=== PATIENT | female | born 1945 | race Caucasian/White ===

== ENCOUNTER → 2019-03-25 | Outpatient (CLI) | payer OTHER ==
[~2019-03-25] MED LIST: Antivert12.5 MG; BISO5; CYCL10; DICL25ER; ESTRTP VAG; METF500 PO
== END ==
LOC: LAB SHORT 08:45 → LAB EV 08:45
DX: R30.0 Dysuria (principal)
CPT/HCPCS: 87077; 87086; 87186

== ENCOUNTER 2024-04-10 10:17 | Inpatient (IN) | payer OTHER, SELFPAY ==
[~2024-04-10] VITALS: Ht 165.1 cm; Wt 82.3 kg
[~2024-04-10 10:17] MED LIST changes: +METPRE4DP PO; +Percocet 5-3251 EACH PO
[2024-04-10 10:59] LABS: BASOPHILS ABSOLUTE AUTO 0.08 K/mm3 (0.00-0.23); BASOPHILS PERCENT AUTO 0 % (0-2); EOSINOPHILS ABSOLUTE AUTO 0.02 K/mm3 (0.00-0.68); EOSINOPHILS PERCENT AUTO 0 % (0-6); Hematocrit 27.1 % (33.0-51.0); Hemoglobin 8.4 g/dL (11.5-16.0); IMMATURE GRAN ABSOLUTE AUTO 1.14 K/mm3 (0.00-0.10); IMMATURE GRAN PERCENT AUTO 3 % (0-1); LYMPHOCYTES ABSOLUTE AUTO 0.82 K/mm3 (0.84-5.20); LYMPHOCYTES PERCENT AUTO 2 % (21-46); MONOCYTES ABSOLUTE AUTO 1.37 K/mm3 (0.16-1.47); MONOCYTES PERCENT AUTO 4 % (4-13); Mean Corpuscular HGB 23.8 pg (26.0-34.0); Mean Corpuscular Volume 77 fL (80-100); Mean Platelet Volume 8.6 fL (9.1-12.4); NEUTROPHILS ABSOLUTE AUTO 33.29 K/mm3 (1.96-9.15); NEUTROPHILS PERCENT AUTO 91 % (41-73); Platelet Count 720 K/mm3 (150-400); RDW Standard Deviation 44.3 fL (35.1-46.3); Red Blood Cell Count 3.53 M/mm3 (3.80-5.20); White Blood Cell Count 36.72 K/mm3 (4.00-11.30)
[2024-04-10] MEDS ORDERED: Ondansetron HCl 2 MG / ML 2ML Vial IV ONE ×2 (11:20→12:40)
[2024-04-10 11:25] LABS: Albumin, Blood 1.9 g/dL (3.4-5.0); Albumin/Globulin Ratio 0.4 (0.8-1.8); Bilirubin, Total 0.7 mg/dL (0.1-1.0); Bun/Creatinine Ratio 24.2 (12.0-20.0); Calcium, Blood 8.8 mg/dL (8.5-10.1); Creatinine, Blood 0.54 mg/dL (0.40-1.00); Globulin, Blood 4.7 g/dL (2.2-4.0); Potassium, Blood 3.1 mmol/L (3.5-5.5); Total Protein, Blood 6.6 g/dL (6.4-8.2)
[2024-04-10] MEDS ORDERED: NS 1,000 ML IV SCH (11:45)
[2024-04-10] MEDS ORDERED: CefTRIAXone Sodium 1,000 MG in NS 100 ML IV ONE (11:45)
[2024-04-10 11:46] LABS: Source, Urine Clean Catch
[2024-04-10 12:17] LABS: Appearance, Urine Turbid (Clear); Bilirubin, Urine Neg (Neg); Blood, Urine 5+ (Neg); Color, Urine Yellow (P-Yellow); Glucose Qualitative, Urine Neg (Neg); Ketones, Urine 4+ (Neg); Leukocyte Esterase, Urine 3+ (Neg); Nitrite, Urine Neg (Neg); Protein, Urine 3+ (Neg); Specific Gravity, Urine 1.015 (1.003-1.022); Urobilinogen, Urine 1+ (Normal)
[2024-04-10] MEDS ORDERED: ESTRADIOL1 M1 PO (12:21)
[2024-04-10] MEDS ORDERED: OXYCODONE-ACET1 EAC2 PO (12:22)
[2024-04-10] MEDS ORDERED: LOSARTAN POTASS25 M2 PO (12:22)
[2024-04-10] MEDS ORDERED: PREGABALIN75 MG PO (12:22)
[2024-04-10] MEDS ORDERED: DRAMAMINE25 M3 PO (12:22)
[2024-04-10] MEDS ORDERED: NEURONTIN300 MG PO (12:22)
[2024-04-10] MEDS ORDERED: BISOPROLOL-HCT1 EAC3 PO (12:23)
[2024-04-10 12:29] LABS: White Blood Cells, Urine TNTC /hpf (0-5)
[2024-04-10 12:30] LABS: Bacteria Many /hpf; Squamous Epithelial Cells Not Seen /hpf (Few)
[2024-04-10] MEDS ORDERED: Morphine Sulfate 4 MG/1 ML Injection IV ONE ×2 (12:40→14:25)
[2024-04-10] MEDS ORDERED: MetFORMIN HCl 500 mg PO ONE (12:50)
[2024-04-10] MEDS ORDERED: Potassium Chloride 10 Meq Tablet SA PO ONE (12:50)
[2024-04-10] MEDS ORDERED: Metoclopramide HCl 5MG / ML 2ML Vial IV ONE (14:30)
[2024-04-10] MEDS ORDERED: Piperacillin/Tazobactam Sod 3.375 GM in NS 100 ML IV ONE (15:05)
[2024-04-10] MEDS ORDERED: Ondansetron HCl 2 MG / ML 2ML Vial IV PRN (16:50)
[2024-04-10] MEDS ORDERED: FLU VACC TS2024-25(6MOS UP)/PF 45 MCG/0.5 ML SYRINGE IM SCH (16:50)
[2024-04-10] MEDS ORDERED: Morphine Sulfate 4 MG/1 ML Injection IV PRN (16:55)
[2024-04-10] MEDS ORDERED: D5W-1/2NS KCl 20mEq 1,000 ML IV SCH (16:55)
[2024-04-10 20:28] VITALS: BP 154/71
--- NOTE | 2024-04-10 21:16 | NUR ---
ADMIT TO SURGICAL FLOOR PT FROM ED TO SURGICAL FLOOR AT THIS TIME. PT A/OX4 WITH VSS. DENIES NEEDS. ORIENTATION TO ROOM PROVIDED, PT VERBALIZED UNDERSTANDING. HAS CALL LIGHT IN REACH.
[2024-04-10] MEDS ORDERED: Piperacillin/Tazobactam Sod 3.375 GM in NS 100 ML IV SCH (23:00)
[2024-04-11 04:07] VITALS: BP 145/66
--- NOTE | 2024-04-11 04:47 | NUR ---
SHIFT SUMMARY NO ACUTE CHANGES T/O SHIFT. PT A/OX4 WITH VSS. IS NPO, MINUS ICE CHIPS. PAIN MANAGED PER EMAR. USING BSC WITH 1-2 SBA, BM AND VOID DURING SHIFT. IVF AND ABX INFUSED PER ORDERS. PT IN BED WITH CALL LIGHT IN REACH. WILL REPORT TO ONCOMING RN
[2024-04-11 04:53] LABS: BASOPHILS ABSOLUTE AUTO 0.05 K/mm3 (0.00-0.23); BASOPHILS PERCENT AUTO 0 % (0-2); EOSINOPHILS PERCENT AUTO 0 % (0-6); Hematocrit 24.7 % (33.0-51.0); Hemoglobin 7.5 g/dL (11.5-16.0); IMMATURE GRAN ABSOLUTE AUTO 0.75 K/mm3 (0.00-0.10); IMMATURE GRAN PERCENT AUTO 3 % (0-1); LYMPHOCYTES ABSOLUTE AUTO 1.01 K/mm3 (0.84-5.20); LYMPHOCYTES PERCENT AUTO 4 % (21-46); MONOCYTES ABSOLUTE AUTO 1.01 K/mm3 (0.16-1.47); MONOCYTES PERCENT AUTO 4 % (4-13); Mean Corpuscular HGB 23.8 pg (26.0-34.0); Mean Corpuscular HGB Conc 30.4 g/dL (31.5-36.5); Mean Corpuscular Volume 78 fL (80-100); Mean Platelet Volume 8.8 fL (9.1-12.4); NEUTROPHILS ABSOLUTE AUTO 20.64 K/mm3 (1.96-9.15); NEUTROPHILS PERCENT AUTO 88 % (41-73); Platelet Count 635 K/mm3 (150-400); RDW Standard Deviation 45.3 fL (35.1-46.3); Red Blood Cell Count 3.15 M/mm3 (3.80-5.20); White Blood Cell Count 23.56 K/mm3 (4.00-11.30)
[2024-04-11 05:24] LABS: Albumin, Blood 1.6 g/dL (3.4-5.0); Albumin/Globulin Ratio 0.4 (0.8-1.8); Bilirubin, Total 0.4 mg/dL (0.1-1.0); Bun/Creatinine Ratio 18.7 (12.0-20.0); Calcium, Blood 7.8 mg/dL (8.5-10.1); Creatinine, Blood 0.54 mg/dL (0.40-1.00); Globulin, Blood 4.1 g/dL (2.2-4.0); Magnesium, Blood 2.1 mg/dL (1.6-2.4); Potassium, Blood 3.2 mmol/L (3.5-5.5); Total Protein, Blood 5.7 g/dL (6.4-8.2)
[2024-04-11 07:19] VITALS: BP 157/71
[2024-04-11] MEDS ORDERED: Enoxaparin 40 MG/0.4 ML SYR SC SCH (09:00)
[2024-04-11] MEDS ORDERED: Potassium Chloride 20 MEQ TabCR PO ONE (11:00)
[2024-04-11] MEDS ORDERED: Potassium Chloride 40 MEQ in NS 250 ML IV ONE (11:45)
[2024-04-11] MEDS ORDERED: NS 250 ML IV PRN (11:45)
[2024-04-11 13:06] LABS: Percent Saturation 6.8 % (15.0-50.0)
[2024-04-11 14:44] VITALS: BP 173/81
--- NOTE | 2024-04-11 19:36 | NUR ---
SHIFT SUMMARY PAIN HAS BEEN MANAGED WITH MORPHINE THIS SHIFT. PT IS A 1 ASSIST WITH GAIT BELT AND WALKER FOR TRANSFERS. PT SAT UP TO THE CHAIR X1 FOR APPROXIMATELY A HALF HOUR. PT CALLS APPROPRIATELY. BEDSIDE REPORT GIVEN TO MARQUES READ.
[2024-04-11 19:46] VITALS: BP 163/69
[2024-04-11] MEDS ORDERED: TraZODone HCl 50 MG Tab PO ONE (22:50)
--- NOTE | 2024-04-11 22:51 | NUR ---
NURSING COMMUNICATION PT COMPLAINING OF TROUBLE SLEEPING, REQUESTING SLEEP AID MEDICATION. TELEPHONE ORDER OBTAINED FROM DR. MEZA AT THIS TIME FOR ONE TIME DOSE OF TRAZODONE 25MG PO. WILL EDUCATE PATIENT AND MEDICATE PER ORDERS.
[2024-04-12 02:54] VITALS: BP 170/67
[2024-04-12 04:30] LABS: BASOPHILS ABSOLUTE AUTO 0.04 K/mm3 (0.00-0.23); BASOPHILS PERCENT AUTO 0 % (0-2); EOSINOPHILS ABSOLUTE AUTO 0.13 K/mm3 (0.00-0.68); EOSINOPHILS PERCENT AUTO 1 % (0-6); Hematocrit 22.9 % (33.0-51.0); Hemoglobin 6.7 g/dL (11.5-16.0); IMMATURE GRAN ABSOLUTE AUTO 0.65 K/mm3 (0.00-0.10); IMMATURE GRAN PERCENT AUTO 4 % (0-1); LYMPHOCYTES ABSOLUTE AUTO 0.93 K/mm3 (0.84-5.20); LYMPHOCYTES PERCENT AUTO 5 % (21-46); MONOCYTES ABSOLUTE AUTO 0.79 K/mm3 (0.16-1.47); MONOCYTES PERCENT AUTO 4 % (4-13); Mean Corpuscular HGB 22.9 pg (26.0-34.0); Mean Corpuscular HGB Conc 29.3 g/dL (31.5-36.5); Mean Corpuscular Volume 78 fL (80-100); Mean Platelet Volume 8.5 fL (9.1-12.4); NEUTROPHILS ABSOLUTE AUTO 15.84 K/mm3 (1.96-9.15); NEUTROPHILS PERCENT AUTO 86 % (41-73); Platelet Count 590 K/mm3 (150-400); RDW Coefficient Variation 15.9 % (11.7-14.2); RDW Standard Deviation 45.8 fL (35.1-46.3); Red Blood Cell Count 2.92 M/mm3 (3.80-5.20); White Blood Cell Count 18.38 K/mm3 (4.00-11.30)
--- NOTE | 2024-04-12 04:56 | NUR ---
SHIFT SUMMARY PT REPORTS IMPROVED SLEEP TONIGHT AFTER PRN TRAZODONE. PAIN MANAGED WITH PRN MORPHINE, MEDICATED X1. A/OX4 WITH VSS. VOIDING AND PASSING FLATUS. SBA TO BSC. IVF AND ABX INFUSED PER ORDERS. IS NPO, TOLERATING SMALL AMOUNTS OF ICE CHIPS. PT CURRENTLY RESTING IN BED WITH CALL LIGHT IN REACH. WILL GIVE REPORT TO ONCOMING RN.
[2024-04-12 05:06] LABS: Albumin, Blood 1.6 g/dL (3.4-5.0); Albumin/Globulin Ratio 0.4 (0.8-1.8); Bilirubin, Total 0.3 mg/dL (0.1-1.0); Bun/Creatinine Ratio 12.2 (12.0-20.0); Calcium, Blood 7.6 mg/dL (8.5-10.1); Creatinine, Blood 0.49 mg/dL (0.40-1.00); Globulin, Blood 3.9 g/dL (2.2-4.0); Potassium, Blood 3.5 mmol/L (3.5-5.5); Total Protein, Blood 5.5 g/dL (6.4-8.2)
[2024-04-12 07:08] VITALS: BP 166/89
--- NOTE | 2024-04-12 10:58 | NUR ---
SPOKE WITH DR. HAWKINS REGARDING H&H OF 6.[address] HAWKINS OK TO GIVE LOVENOX. DR. HAWKINS PLACED ORDERS FOR 1 UNIT PRBC.
[2024-04-12 14:55] VITALS: BP 170/79
--- NOTE | 2024-04-12 14:58 | NUR ---
DR. HAWKINS NOTIFIED THAT UNIT OF PRBCs IS READY FOR THE PATIENT. PER LAB IT TOOK LONGER TO VERIFY BECAUSE SHE HAS A POSITIVE ANTIBODY. REQUESTED THAT DR. HAWKINS CONSENT PATIENT FOR BLOOD, BLOOD CONSENT NOT PRESENT ON PT'S CHART. PER DR. HAWKINS HE HAS "ALREADY LEFT" SINCE PT IS HEMODYNAMICALLY STABLE HOLD UNIT OF PRBC AT THIS TIME. PER DR. HAWKINS HE WILL PLACE ORDERS FOR IRON INFUSION.
[2024-04-12] MEDS ORDERED: Sod Ferric Gluc Complx/Sucrose 125 MG in NS 100 ML IV SCH (15:00)
[2024-04-12] MEDS ORDERED: Meclizine HCl 25 MG Tab PO SCH (16:30)
--- NOTE | 2024-04-12 16:30 | NUR ---
HYPERTENSION DR. HAWKINS NOTIFIED OF ELEVATED BLOOD PRESSURE OF 170/79. HE WAS ALSO NOTIFIED THAT PT CAN NOW HAVE CLEAR LIQUIDS PER DR. DOVER. DR. HAWKINS ORDERED HOME BP MEDICATIONS.
[2024-04-12] MEDS ORDERED: OxyCODONE 10/Acetamin 325 TABLET PO SCH (16:42)
[2024-04-12] MEDS ORDERED: Losartan Potassium 25 MG Tab PO SCH (17:00)
--- NOTE | 2024-04-12 17:00 | NUR ---
ELDA FROM PHARMACY NOTIFIED THIS RN THAT WE DO NOT HAVE PT'S BISOPROLOL. PT NOTIFIED AND ASKED HER SON TO BRING HER MEDICATION FROM HOME FOR TOMORROW.
[2024-04-12 19:18] VITALS: BP 168/76
--- NOTE | 2024-04-12 19:47 | NUR ---
SHIFT SUMMARY PT IS GETTING IV ABX, WBC COUNT IMPROVING. PT IS A 1 ASSIST FOR TRANSFERS. PT TOLERATING CLEAR LIQUIDS. PAIN MANAGED WITH MORPHINE X1 THIS SHIFT. PLAN FOR RADIOLOGY GUIDED DRAIN PLACEMENT TOMORROW. BEDSIDE REPORT GIVEN TO MARQUES READ.
[2024-04-12] MEDS ORDERED: Gabapentin 300 MG Cap PO SCH (21:00)
[2024-04-12] MEDS ORDERED: MetFORMIN HCl 500 mg PO SCH (21:00)
[2024-04-13 04:10] VITALS: BP 174/78
[2024-04-13 04:26] LABS: BASOPHILS ABSOLUTE AUTO 0.03 K/mm3 (0.00-0.23); BASOPHILS PERCENT AUTO 0 % (0-2); EOSINOPHILS ABSOLUTE AUTO 0.25 K/mm3 (0.00-0.68); EOSINOPHILS PERCENT AUTO 1 % (0-6); Hematocrit 23.5 % (33.0-51.0); Hemoglobin 7.1 g/dL (11.5-16.0); IMMATURE GRAN ABSOLUTE AUTO 0.48 K/mm3 (0.00-0.10); IMMATURE GRAN PERCENT AUTO 3 % (0-1); LYMPHOCYTES ABSOLUTE AUTO 1.25 K/mm3 (0.84-5.20); LYMPHOCYTES PERCENT AUTO 7 % (21-46); MONOCYTES ABSOLUTE AUTO 0.93 K/mm3 (0.16-1.47); MONOCYTES PERCENT AUTO 5 % (4-13); Mean Corpuscular HGB 23.1 pg (26.0-34.0); Mean Corpuscular HGB Conc 30.2 g/dL (31.5-36.5); Mean Corpuscular Volume 77 fL (80-100); Mean Platelet Volume 8.2 fL (9.1-12.4); NEUTROPHILS ABSOLUTE AUTO 15.33 K/mm3 (1.96-9.15); NEUTROPHILS PERCENT AUTO 84 % (41-73); NRBC ABSOLUTE 0.02 K/mm3 (0.00-0.02); NRBC Auto 0.1 /100 WBC (0.0-0.2); Platelet Count 671 K/mm3 (150-400); RDW Coefficient Variation 15.9 % (11.7-14.2); RDW Standard Deviation 43.9 fL (35.1-46.3); Red Blood Cell Count 3.07 M/mm3 (3.80-5.20); White Blood Cell Count 18.27 K/mm3 (4.00-11.30)
[2024-04-13 04:58] LABS: Albumin, Blood 1.6 g/dL (3.4-5.0); Albumin/Globulin Ratio 0.4 (0.8-1.8); Bilirubin, Total 0.5 mg/dL (0.1-1.0); Bun/Creatinine Ratio 7.5 (12.0-20.0); Calcium, Blood 8.1 mg/dL (8.5-10.1); Creatinine, Blood 0.53 mg/dL (0.40-1.00); Globulin, Blood 3.9 g/dL (2.2-4.0); Potassium, Blood 3.7 mmol/L (3.5-5.5); Total Protein, Blood 5.5 g/dL (6.4-8.2)
--- NOTE | 2024-04-13 05:58 | NUR ---
SHIFT SUMMARY NO ACUTE CHANGES. PT REPORTS IMPROVED SLEEP TONIGHT AND DENIED NEED FOR PAIN MEDICATION. IVF AND ABX INFUSED PER ORDERS. ALEXANDER CL DIET, DENIES N/V. NPO SINCE MIDNIGHT FOR POSSIBLE PROCEDURE TODAY. PT CURRENTLY RESTING BED WITH CALL LIGHT IN REACH. WILL GIVE REPORT TO ONCOMING RN.
[2024-04-13 07:33] VITALS: BP 169/91
[2024-04-13 07:34] VITALS: BP 157/76
[2024-04-13] MEDS ORDERED: [UNRECOGNIZED DRUG - OTHER] PO SCH (09:00)
[2024-04-13] MEDS ORDERED: Gabapentin 300 MG Cap PO SCH (09:00)
[2024-04-13] MEDS ORDERED: BISOPROLOL PO SCH (09:00)
[2024-04-13] MEDS ORDERED: Estradiol 1 MG Tab PO SCH (09:00)
--- NOTE | 2024-04-13 10:00 | NUR ---
MORNING NOTE THIS RN ASSUMED CARE AT APPROX 0715. PATIENT ALERT AND ORIENTED X4. COMMUNICATES NEEDS EFFECTIVELY. VSS. TOLERATING ROOM AIR, SATs >90%. NPO SINCE MIDNIGHT FOR ABD DRAIN PLACEMENT TODAY. ABD PAIN TOLERABLE. X2 BMs THIS MORNING. DENIES N/V. MANAGING CHRONIC BACK AND KNEE PAIN PER EMAR. UP TO BSC WITH SBA. REPOSITIONING HERSELF INDEPENDENTLY IN BED. CALL LIGHT IN REACH.
[2024-04-13] MEDS ORDERED: Thiamine HCl 100 MG Tab PO SCH (10:45)
[2024-04-13] MEDS ORDERED: Multivitamins 1 Tab PO SCH (10:45)
[2024-04-13 14:40] VITALS: BP 165/81
--- NOTE | 2024-04-13 16:22 | NUR ---
SHIFT SUMMARY NO ACUTE EVENTS SINCE MORNING NOTE. MD DOVER TO BEDSIDE TODAY - UNABLE TO PLACE DRAIN DUE TO LOCATION IN PELVIS, PLAN TO CONTINUE IV ABX. HTN NOTED - SBP SUSTAINING 150s-160s. DENIES CHEST PAIN, PRESSURE. TOLERATING ROOM AIR, SATs >90%. TOLERATING PO INTAKE - DENIES N/V. UP TO BSC WITH SBA. VOIDING. MULTIPLE BMs THROUGHOUT DAY. BEDBATH COMPLETED. MANAGING CHRONIC AND ABD PAIN PER EMAR. CALL LIGHT IN REACH. WILL CONTINUE TO MONITOR AND REPORT TO ONCOMING RN.
[2024-04-13 19:26] VITALS: BP 174/77
[2024-04-14 03:52] VITALS: BP 150/72
--- NOTE | 2024-04-14 03:56 | NUR ---
NOC SUMMARY- NO NEW ISSUES. PAIN MANAGED WELL. PT HAD SEVERAL BM'S. PT VOIDING WELL. PT IS USING BSC WITHOUT ISSUE. PT HAS BEEN AWAKE FOR MOST OF SHIFT. CALL LIGHT IN REACH.
[2024-04-14 05:51] LABS: BASOPHILS ABSOLUTE AUTO 0.05 K/mm3 (0.00-0.23); BASOPHILS PERCENT AUTO 0 % (0-2); EOSINOPHILS ABSOLUTE AUTO 0.25 K/mm3 (0.00-0.68); EOSINOPHILS PERCENT AUTO 1 % (0-6); Hematocrit 24.6 % (33.0-51.0); Hemoglobin 7.5 g/dL (11.5-16.0); IMMATURE GRAN ABSOLUTE AUTO 0.32 K/mm3 (0.00-0.10); IMMATURE GRAN PERCENT AUTO 2 % (0-1); LYMPHOCYTES ABSOLUTE AUTO 1.35 K/mm3 (0.84-5.20); LYMPHOCYTES PERCENT AUTO 8 % (21-46); MONOCYTES ABSOLUTE AUTO 1.26 K/mm3 (0.16-1.47); MONOCYTES PERCENT AUTO 7 % (4-13); Mean Corpuscular HGB 23.7 pg (26.0-34.0); Mean Corpuscular HGB Conc 30.5 g/dL (31.5-36.5); Mean Corpuscular Volume 78 fL (80-100); Mean Platelet Volume 8.5 fL (9.1-12.4); NEUTROPHILS ABSOLUTE AUTO 14.35 K/mm3 (1.96-9.15); NEUTROPHILS PERCENT AUTO 82 % (41-73); Platelet Count 667 K/mm3 (150-400); RDW Coefficient Variation 16.2 % (11.7-14.2); RDW Standard Deviation 45.4 fL (35.1-46.3); Red Blood Cell Count 3.17 M/mm3 (3.80-5.20); White Blood Cell Count 17.58 K/mm3 (4.00-11.30)
[2024-04-14 06:19] LABS: Magnesium, Blood 1.8 mg/dL (1.6-2.4)
[2024-04-14 06:23] LABS: Albumin, Blood 1.7 g/dL (3.4-5.0); Albumin/Globulin Ratio 0.4 (0.8-1.8); Bilirubin, Total 0.4 mg/dL (0.1-1.0); Bun/Creatinine Ratio 5.5 (12.0-20.0); Creatinine, Blood 0.54 mg/dL (0.40-1.00); Globulin, Blood 3.9 g/dL (2.2-4.0); Phosphorus, Blood 2.8 mg/dL (2.5-4.9); Potassium, Blood 3.3 mmol/L (3.5-5.5); Total Protein, Blood 5.6 g/dL (6.4-8.2)
[2024-04-14 07:07] VITALS: BP 145/64
[2024-04-14] MEDS ORDERED: Mag Sulfate 1 GM/D5% 100ML 100 ML IV STA (08:26)
[2024-04-14] MEDS ORDERED: Potassium Chloride 20 MEQ/15 ML UDC PO ONE (08:30)
[2024-04-14 15:23] VITALS: BP 137/60
[2024-04-14 19:51] VITALS: BP 150/70
--- NOTE | 2024-04-14 20:01 | NUR ---
SHIFT SUMMARY S/P SIG PERF, NON SURGICAL MEDICAL MANAGMENT ONGOING TODAY. PT STATES HER HOME MEDS ARE NOT THE SAME ORDERED DUE TO HER ATTEMPTING TO REDUCE HER MEDICATION INTAKE WHICH WAS ALSO DISCUSSED WITH NOC RN. PT DISCUSSED FRUSTRATION WITH FOOD ORDERING, THIS WAS DISCUSSED IN DETAIL ON WHAT THE DEFAULT MEALS ARE AND HOW TO ORDER IF THAT IS NOT WHAT SHE WANTS. NO ACUTE EVENTS THIS SHIFT, CALL LIGHT IN REACH.
--- NOTE | 2024-04-15 04:16 | NUR ---
SHIFT SUMMARY NOC. PT ADMIT FOR NON SURGICAL SIGMOID PERF. PT HAVING BMS, PASSING GAS, DENIES N/V. PT REPORTS MILD TOLERABLE ABDOMINAL DISCOMFORT AT TIMES. PT DECLINING SCHEDULED PERCOCET BUT CAN NOT CLEARLY VERBALIZE REASON. PT DOES MENTION MORPHINE AT TIMES, EDUCATION PROVIDED THAT THIS MEDICATION IS FOR SEVERE PAIN IF SCHEDULED PAIN MEDS ARE INEFFECTIVE. PT THEN STATES DISCOMFORT IS MORE ANXIETY THAN PAIN. THERAPEUTIC COMMUNICATION AND SUPPORT PROVIDED. PT DID NOT SLEEP WELL. NEW IV ACCESS OBTAINED THIS SHIFT IN [place]. CALL LIGHT IN REACH.
[2024-04-15 05:07] VITALS: BP 151/69
[2024-04-15 07:02] LABS: Bun/Creatinine Ratio 6.3 (12.0-20.0); Creatinine, Blood 0.64 mg/dL (0.40-1.00); Potassium, Blood 3.8 mmol/L (3.5-5.5)
[2024-04-15 07:54] VITALS: BP 166/78
[2024-04-15 08:18] LABS: BASOPHILS ABSOLUTE AUTO 0.06 K/mm3 (0.00-0.23); BASOPHILS PERCENT AUTO 0 % (0-2); EOSINOPHILS PERCENT AUTO 2 % (0-6); Hematocrit 23.9 % (33.0-51.0); Hemoglobin 7.2 g/dL (11.5-16.0); IMMATURE GRAN ABSOLUTE AUTO 0.19 K/mm3 (0.00-0.10); IMMATURE GRAN PERCENT AUTO 1 % (0-1); LYMPHOCYTES ABSOLUTE AUTO 1.37 K/mm3 (0.84-5.20); LYMPHOCYTES PERCENT AUTO 8 % (21-46); MONOCYTES ABSOLUTE AUTO 1.37 K/mm3 (0.16-1.47); MONOCYTES PERCENT AUTO 8 % (4-13); Mean Corpuscular HGB Conc 30.1 g/dL (31.5-36.5); Mean Corpuscular Volume 80 fL (80-100); Mean Platelet Volume 8.6 fL (9.1-12.4); NEUTROPHILS ABSOLUTE AUTO 13.31 K/mm3 (1.96-9.15); NEUTROPHILS PERCENT AUTO 80 % (41-73); Platelet Count 688 K/mm3 (150-400); RDW Coefficient Variation 16.7 % (11.7-14.2); RDW Standard Deviation 46.6 fL (35.1-46.3)
[2024-04-15] MEDS ORDERED: HydroCHLOROthiazide 25 mg Tab PO SCH (09:00)
[2024-04-15] MEDS ORDERED: Metoprolol Succinate 50 MG TABCR PO SCH (09:00)
[2024-04-15] MEDS ORDERED: Cyclobenzaprine HCl 10 MG Tab PO PRN (11:05)
[2024-04-15 16:11] VITALS: BP 137/60
--- NOTE | 2024-04-15 18:10 | NUR ---
SHIFT SUMMARY PT A/OX. PT ALEXANDER PO INTAKE WELL. VOIDING AND HAVING BM FREQUENTLY. PT RECEIVING SCHEDULED ABX. PT VERY PARTICULAR ABOUT HER MEDICATIONS. PT DENIED PAIN DURING SHIFT AND REFUSED ALL SCHEDULED PAIN MEDICATION. FAMILY VISITED FOR SHORT PERIOD OF TIME IN THE EVENING AND PT WAS HAPPY ABOUT THAT. [place] BEEN ABLE [place] [facility] [place]LINE MANAGEMENT. PLAN OF CARE ONGOING.
[2024-04-15 19:52] VITALS: BP 171/76
--- NOTE | 2024-04-16 04:30 | NUR ---
SHIFT SUMMARY S/P DIVERTIC MICRO PERF. NO ACUTE CHANGES OVERNIGHT. VSS. TOLERATING ORALS. IV ABX INFUSING PER EMAR. PT AMBUL[place] [facility] [place] NO OTHER AMB T/O NIGHT. VOIDING. FREQUENT, LIQUID BMs. PT REPORTS PAIN TOLERABLE, MEDICATED PER EMAR. CALL LIGHT IN REACH, BED IN LOWEST POSITION, WILL REPORT TO DAY RN.
[2024-04-16 04:38] VITALS: BP 143/64
[2024-04-16 05:37] LABS: BASOPHILS ABSOLUTE AUTO 0.06 K/mm3 (0.00-0.23); BASOPHILS PERCENT AUTO 0 % (0-2); EOSINOPHILS ABSOLUTE AUTO 0.24 K/mm3 (0.00-0.68); EOSINOPHILS PERCENT AUTO 2 % (0-6); Hemoglobin 7.4 g/dL (11.5-16.0); IMMATURE GRAN ABSOLUTE AUTO 0.16 K/mm3 (0.00-0.10); IMMATURE GRAN PERCENT AUTO 1 % (0-1); LYMPHOCYTES ABSOLUTE AUTO 1.53 K/mm3 (0.84-5.20); LYMPHOCYTES PERCENT AUTO 10 % (21-46); MONOCYTES ABSOLUTE AUTO 1.29 K/mm3 (0.16-1.47); MONOCYTES PERCENT AUTO 8 % (4-13); Mean Corpuscular HGB 24.4 pg (26.0-34.0); Mean Corpuscular HGB Conc 30.8 g/dL (31.5-36.5); Mean Corpuscular Volume 79 fL (80-100); Mean Platelet Volume 8.4 fL (9.1-12.4); NEUTROPHILS ABSOLUTE AUTO 12.23 K/mm3 (1.96-9.15); NEUTROPHILS PERCENT AUTO 79 % (41-73); Platelet Count 669 K/mm3 (150-400); RDW Coefficient Variation 17.7 % (11.7-14.2); RDW Standard Deviation 47.2 fL (35.1-46.3); Red Blood Cell Count 3.03 M/mm3 (3.80-5.20); White Blood Cell Count 15.51 K/mm3 (4.00-11.30)
[2024-04-16 05:59] LABS: Bun/Creatinine Ratio 8.8 (12.0-20.0); Calcium, Blood 8.3 mg/dL (8.5-10.1); Creatinine, Blood 0.68 mg/dL (0.40-1.00); Phosphorus, Blood 3.3 mg/dL (2.5-4.9); Potassium, Blood 3.2 mmol/L (3.5-5.5)
[2024-04-16 07:09] VITALS: BP 134/61
[2024-04-16] MEDS ORDERED: Potassium Chloride 20 MEQ/15 ML UDC PO ONE (07:45)
[2024-04-16] MEDS ORDERED: Amoxicillin/Clavulanate K 875 MG Tab PO SCH (09:00)
[2024-04-16] MEDS ORDERED: OxyCODONE 10/Acetamin 325 TABLET PO PRN (09:58)
[2024-04-16] MEDS ORDERED: Lactobacil 2-S.Thermo-Bifido 1 1 Cap PO SCH (10:25)
[2024-04-16 15:14] VITALS: BP 131/61
--- NOTE | 2024-04-16 15:57 | NUR ---
SHIFT SUMMARY PT TRANSITIONED TO PO ABX. PAIN MANAGED WITH PO PAIN MEDICATION. PT IS INDEPENDENT TO THE BEDSIDE COMMODE BUT A 1 ASSIST WHEN OOB. PHYSICAL THERAPY ORDERED BUT PT DECLINED. PLAN FOR POSSIBLE DISCHARGE HOME TOMORROW.
--- NOTE | 2024-04-16 17:46 | NUR ---
ASSUMED PT CARE AT ABOUT 1600
[2024-04-16 19:22] VITALS: BP 154/66
[2024-04-16] MEDS ORDERED: Gabapentin 300 MG Cap PO SCH (21:00)
[2024-04-17 04:56] VITALS: BP 157/69
--- NOTE | 2024-04-17 05:09 | NUR ---
SHIFT SUMMARY PT HAS RESTED T/O THE NIGHT, INDEPENDENT TO THE BSC. PLAN OF CARE UNCHANGED. PT PLESANT AND COOPERATIVE WITH CARE. PLAN IS FOR DC TODAY. BED IN LOWEST POSITION, CALL LIGHT WITHIN REACH.
[2024-04-17 07:13] VITALS: BP 155/76
[2024-04-17 09:01] LABS: BASOPHILS ABSOLUTE AUTO 0.06 K/mm3 (0.00-0.23); BASOPHILS PERCENT AUTO 0 % (0-2); EOSINOPHILS ABSOLUTE AUTO 0.18 K/mm3 (0.00-0.68); EOSINOPHILS PERCENT AUTO 1 % (0-6); Hematocrit 26.2 % (33.0-51.0); Hemoglobin 7.9 g/dL (11.5-16.0); IMMATURE GRAN ABSOLUTE AUTO 0.13 K/mm3 (0.00-0.10); IMMATURE GRAN PERCENT AUTO 1 % (0-1); LYMPHOCYTES ABSOLUTE AUTO 1.32 K/mm3 (0.84-5.20); LYMPHOCYTES PERCENT AUTO 8 % (21-46); MONOCYTES ABSOLUTE AUTO 1.21 K/mm3 (0.16-1.47); MONOCYTES PERCENT AUTO 8 % (4-13); Mean Corpuscular HGB 23.9 pg (26.0-34.0); Mean Corpuscular HGB Conc 30.2 g/dL (31.5-36.5); Mean Corpuscular Volume 79 fL (80-100); Mean Platelet Volume 8.1 fL (9.1-12.4); NEUTROPHILS ABSOLUTE AUTO 12.89 K/mm3 (1.96-9.15); NEUTROPHILS PERCENT AUTO 82 % (41-73); Platelet Count 695 K/mm3 (150-400); RDW Coefficient Variation 18.4 % (11.7-14.2); RDW Standard Deviation 48.7 fL (35.1-46.3); Red Blood Cell Count 3.31 M/mm3 (3.80-5.20); White Blood Cell Count 15.79 K/mm3 (4.00-11.30)
[2024-04-17] MEDS ORDERED: PERCOCET 10-321 EA13 PO (11:06)
[2024-04-17] MEDS ORDERED: Cyclobenzaprine5 MG PO (12:54)
[2024-04-17] MEDS ORDERED: AMOCLA875 PO (12:54)
[2024-04-17] MEDS ORDERED: MULVITA PO (12:55)
[2024-04-17] MEDS ORDERED: B-1100 M1 PO (12:55)
--- NOTE | 2024-04-17 13:13 | NUR ---
DISCHARGE PT EDUCATED ON AND RECEIVED PRINTED DISCHARGE INSTRUCTIONS AND VERBALIZED AN UNDERSTANDING. HOME HEALTH SERVICES SET UP PER CARE MANAGEMENT AND FWW GIVEN TO PT SON TO TAKE HOME. PG IV DC'D. PT BYSTOLIC MEDICATION GIVEN BACK TO PT. SON GATHERED ALL PERSONAL BELONGINGS FOR PT. NEW RX MEDICATION FAXED TO [facility] FOR PERCOCET GIVEN TO PT. PT WAITING FOR SON TO TAKE HER HOME.
== END 2024-04-17 13:26 | disposition home or self-care (01) | DRG 871 ==
LOC: ER 10:17 → SURS 16:48
PROVIDERS: Student in an Organized Health Care Education/Training Program; ADMIT Internal Medicine
DX: A41.9 Sepsis, unspecified organism (principal); K65.1 Peritoneal abscess; K57.20 Diverticulitis of large intestine with perforation and abscess without bleeding; N39.0 Urinary tract infection, site not specified; E87.1 Hypo-osmolality and hyponatremia; K56.7 Ileus, unspecified; R65.20 Severe sepsis without septic shock; E87.6 Hypokalemia; I10 Essential (primary) hypertension; F41.9 Anxiety disorder, unspecified; I25.10 Atherosclerotic heart disease of native coronary artery without angina pectoris; B18.2 Chronic viral hepatitis C; F32.9 Major depressive disorder, single episode, unspecified; E66.01 Morbid (severe) obesity due to excess calories; F43.10 Post-traumatic stress disorder, unspecified; E11.9 Type 2 diabetes mellitus without complications; K52.89 Other specified noninfective gastroenteritis and colitis; E88.09 Other disorders of plasma-protein metabolism, not elsewhere classified; D50.9 Iron deficiency anemia, unspecified; G89.4 Chronic pain syndrome; M48.062 Spinal stenosis, lumbar region with neurogenic claudication; B96.20 Unspecified Escherichia coli [E. coli] as the cause of diseases classified elsewhere; B96.89 Other specified bacterial agents as the cause of diseases classified elsewhere; S09.90XA Unspecified injury of head, initial encounter; W19.XXXA Unspecified fall, initial encounter; Z90.710 Acquired absence of both cervix and uterus; Z87.891 Personal history of nicotine dependence; Z86.73 Personal history of transient ischemic attack (TIA), and cerebral infarction without residual deficits; Z88.8 Allergy status to other drugs, medicaments and biological substances; Z79.84 Long term (current) use of oral hypoglycemic drugs; Z79.891 Long term (current) use of opiate analgesic; Z79.899 Other long term (current) drug therapy; Z68.29 Body mass index [BMI] 29.0-29.9, adult; Z90.721 Acquired absence of ovaries, unilateral; Z79.890 Hormone replacement therapy
CPT/HCPCS: 36415; 51701; 70450; 74177; 80048; 80053; 81001; 82728; 83540; 83550; 83605; 83690; 83735; 84100; 85025; 86850; 86870; 86900; 86901; 86902; 86922; 87040; 87077; 87086; 87186; 96361; 96365-59; 96367; 96375; 96376; 97110; 97116; 97161; 99285-25; A9270; J0696; J1650; J2270; J2405; J2543; J2765; J2916; J3475; J3480; J7030; J7050; Q9967

== ENCOUNTER 2024-04-28 11:58 | Inpatient (IN) | payer OTHER, SELFPAY ==
[~2024-04-28] VITALS: Ht 162.6 cm; Wt 74.8 kg
[~2024-04-28 11:58] MED LIST changes: +AMOCLA875 PO; +B-1100 M1 PO; +BISOPROLOL-HCT1 EAC3 PO; +Cyclobenzaprine5 MG PO; +DRAMAMINE25 M3 PO; +ESTRADIOL1 M1 PO; +LOSARTAN POTASS25 M2 PO; +NEURONTIN300 MG PO; +ONE DAILY MUL400 MCG PO; +OXYCODONE-ACET1 EAC2 PO; +PERCOCET 10-321 EA13 PO; +PREGABALIN75 MG PO
[2024-04-28 13:55] LABS: BASOPHILS ABSOLUTE AUTO 0.05 K/mm3 (0.00-0.23); BASOPHILS PERCENT AUTO 1 % (0-2); EOSINOPHILS ABSOLUTE AUTO 0.34 K/mm3 (0.00-0.68); EOSINOPHILS PERCENT AUTO 4 % (0-6); Hematocrit 30.7 % (33.0-51.0); Hemoglobin 9.2 g/dL (11.5-16.0); IMMATURE GRAN ABSOLUTE AUTO 0.09 K/mm3 (0.00-0.10); IMMATURE GRAN PERCENT AUTO 1 % (0-1); LYMPHOCYTES ABSOLUTE AUTO 1.65 K/mm3 (0.84-5.20); LYMPHOCYTES PERCENT AUTO 17 % (21-46); MONOCYTES ABSOLUTE AUTO 0.86 K/mm3 (0.16-1.47); MONOCYTES PERCENT AUTO 9 % (4-13); Mean Corpuscular HGB 23.7 pg (26.0-34.0); Mean Corpuscular Volume 79 fL (80-100); Mean Platelet Volume 8.4 fL (9.1-12.4); NEUTROPHILS ABSOLUTE AUTO 6.54 K/mm3 (1.96-9.15); NEUTROPHILS PERCENT AUTO 69 % (41-73); Platelet Count 448 K/mm3 (150-400); RDW Coefficient Variation 18.6 % (11.7-14.2); Red Blood Cell Count 3.88 M/mm3 (3.80-5.20); White Blood Cell Count 9.53 K/mm3 (4.00-11.30)
[2024-04-28 14:20] LABS: Albumin, Blood 2.3 g/dL (3.4-5.0); Albumin/Globulin Ratio 0.4 (0.8-1.8); Bilirubin, Total 0.4 mg/dL (0.1-1.0); Bun/Creatinine Ratio 26.3 (12.0-20.0); Calcium, Blood 9.1 mg/dL (8.5-10.1); Creatinine, Blood 0.72 mg/dL (0.40-1.00); Globulin, Blood 5.2 g/dL (2.2-4.0); Potassium, Blood 3.3 mmol/L (3.5-5.5); Total Protein, Blood 7.5 g/dL (6.4-8.2)
[2024-04-28] MEDS ORDERED: NS 1,000 ML IV SCH (17:30)
[2024-04-28 17:36] LABS: Source, Urine Clean Catch
[2024-04-28 17:39] LABS: Appearance, Urine Turbid (Clear); Bilirubin, Urine Neg (Neg); Blood, Urine 4+ (Neg); Color, Urine Yellow (P-Yellow); Glucose Qualitative, Urine Neg (Neg); Ketones, Urine Neg (Neg); Leukocyte Esterase, Urine 3+ (Neg); Nitrite, Urine Neg (Neg); Protein, Urine 3+ (Neg); Urobilinogen, Urine 1+ (Normal)
[2024-04-28 17:48] LABS: White Blood Cells, Urine TNTC /hpf (0-5)
[2024-04-28 17:49] LABS: Squamous Epithelial Cells Few /hpf (Few)
[2024-04-28 17:50] LABS: Bacteria Many /hpf
[2024-04-28] MEDS ORDERED: CefTRIAXone Sodium 1,000 MG in NS 100 ML IV ONE (18:00)
[2024-04-28] MEDS ORDERED: MetroNIDAZOLE 500MG/NS 100 ml 100 ML IV ONE (18:30)
[2024-04-28] MEDS ORDERED: Ondansetron HCl 2 MG / ML 2ML Vial IV PRN (18:45)
[2024-04-28] MEDS ORDERED: FLU VACC TS2024-25(6MOS UP)/PF 45 MCG/0.5 ML SYRINGE IM SCH (18:45)
[2024-04-28] MEDS ORDERED: Lactated Ringer's 1,000 ML IV SCH (18:50)
[2024-04-28] MEDS ORDERED: Metoclopramide HCl 5MG / ML 2ML Vial IV PRN (18:50)
[2024-04-28] MEDS ORDERED: Potassium Chloride 40 MEQ in NS 250 ML IV STA (18:58)
[2024-04-28] MEDS ORDERED: MECL25 PO (21:58)
[2024-04-28] MEDS ORDERED: GABA300 PO ×2 (21:58→21:59)
[2024-04-28 23:01] VITALS: BP 142/68
--- NOTE | 2024-04-28 23:50 | NUR ---
SHIFT SUMMARY: PT AOX4 ARRIVED BY [facility] FROM THE ER ~2300. SELF TRANSFERRED FROM [facility] TO BED. PT DENIES CP, SOB. PT ORIENTED TO ROOM AND CALLS APPROPRIATELY. BED IN LOWEST POSITION, CALL LIGHT IN REACH. CONTINUING CARE.
[2024-04-29] MEDS ORDERED: Insulin Human Lispro 100 Units/ML 3ML Syringe SC SCH
[2024-04-29] MEDS ORDERED: MetroNIDAZOLE 500MG/NS 100 ml 100 ML IV SCH (02:00)
[2024-04-29] MEDS ORDERED: NS 250 ML IV PRN (02:10)
[2024-04-29 03:16] VITALS: BP 138/73
--- NOTE | 2024-04-29 04:21 | NUR ---
SHIFT SUMMARY: PT AOX4 UP FROM ED. PT IS SBA/ IND WITH FWW TO BATHROOM. CONTINENT TO URINE HAS NOT HAD BM IN AT LEAST A WEEK. HYPER ACTIVE BOWELSOUNDS, ENDORSES ABD TENDERNESS, ABD SOFT. DENIES NAUSEA. PT CLAIMS MEDICATION TO TREAT HEP C A FEW MONTHS AGO STARTED ALL HER ISSUES. ONLY HAD SOME SIPS OF SODA BEFORE BED, BUT DENIES ANY HUNGER. TOLERATING MEDS WELL. PT CALLS APPROPRIATELY, RESTING IN BED, BED IN LOWEST POSITION, CALL LIGHT IN REACH. CONTINUING CARE.
[2024-04-29 05:05] LABS: BASOPHILS ABSOLUTE AUTO 0.04 K/mm3 (0.00-0.23); BASOPHILS PERCENT AUTO 1 % (0-2); EOSINOPHILS ABSOLUTE AUTO 0.35 K/mm3 (0.00-0.68); EOSINOPHILS PERCENT AUTO 6 % (0-6); Hematocrit 26.2 % (33.0-51.0); Hemoglobin 7.9 g/dL (11.5-16.0); IMMATURE GRAN ABSOLUTE AUTO 0.07 K/mm3 (0.00-0.10); IMMATURE GRAN PERCENT AUTO 1 % (0-1); LYMPHOCYTES ABSOLUTE AUTO 1.61 K/mm3 (0.84-5.20); LYMPHOCYTES PERCENT AUTO 25 % (21-46); MONOCYTES ABSOLUTE AUTO 0.69 K/mm3 (0.16-1.47); MONOCYTES PERCENT AUTO 11 % (4-13); Mean Corpuscular HGB 23.8 pg (26.0-34.0); Mean Corpuscular HGB Conc 30.2 g/dL (31.5-36.5); Mean Corpuscular Volume 79 fL (80-100); Mean Platelet Volume 8.4 fL (9.1-12.4); NEUTROPHILS ABSOLUTE AUTO 3.58 K/mm3 (1.96-9.15); NEUTROPHILS PERCENT AUTO 57 % (41-73); Platelet Count 384 K/mm3 (150-400); RDW Coefficient Variation 18.6 % (11.7-14.2); RDW Standard Deviation 53.4 fL (35.1-46.3); Red Blood Cell Count 3.32 M/mm3 (3.80-5.20); White Blood Cell Count 6.34 K/mm3 (4.00-11.30)
[2024-04-29 05:19] LABS: International Normalized Ratio 1.14; Prothrombin Time Results 12.1 Sec (9.7-11.5)
[2024-04-29 05:28] LABS: Albumin/Globulin Ratio 0.5 (0.8-1.8); Bilirubin, Total 0.3 mg/dL (0.1-1.0); Bun/Creatinine Ratio 19.9 (12.0-20.0); Calcium, Blood 8.5 mg/dL (8.5-10.1); Creatinine, Blood 0.6 mg/dL (0.40-1.00); Globulin, Blood 4.3 g/dL (2.2-4.0); Potassium, Blood 3.4 mmol/L (3.5-5.5); Total Protein, Blood 6.3 g/dL (6.4-8.2)
[2024-04-29 07:25] VITALS: BP 145/64
[2024-04-29] MEDS ORDERED: Piperacillin/Tazobactam Sod 3.375 GM in NS 100 ML IV SCH (09:00)
--- NOTE | 2024-04-29 11:57 | NUR ---
Upon receiving a referral for spiritual care, I visited the patient. She is on the phone with her brother Reed, so I abbrieviate my visit. She explains about the medical complications, her struggles to understand how anything clinically planned would help and about her desire to leave and go eat food. I reinforce helpful attitudes and practices and provided prayer. Both the patient and Reed voice their appreciation. I will continue to remain avialable.
[2024-04-29 16:57] VITALS: BP 155/73
[2024-04-29] MEDS ORDERED: CefTRIAXone Sodium 1,000 MG in NS 100 ML IV SCH (18:00)
--- NOTE | 2024-04-29 18:49 | NUR ---
SHIFT SUMMARY- PT WAS NPO FOR THE FIRST PART OF THE DAY PER SURGEON. RECIEVED A VERBAL TO KEEP THE PT NPO UNTIL INSTRUCTED BY DR ESTEVEZ. CALLED HOSPITALIST THIS AFTERNOON A CLEAR LIQUID DIET WAS ORDERED BY A DIFFERENT DOCTOR. DR VAZQUEZ CALLED AND SPOKE TO DR ESTEVEZ TO CLARIFY THE PLAN. PT IS GOING TO GO TO CT FOR A GUIDED DRAINAGE TOMORROW MORNING. NPO AT MIDNIGHT TONIGHT. PT IS VERY FATALISTIC IN HER STATEMENTS TO STAFF. "OH, YOU'RE NOT GOING TO LET ME EAT; I GUESS I AM GONNA STARVE TO ." PT HAS BEEN UP INDEPENDENTLY IN THE ROOM. SHE HAD A HEATING PAD ON AND THE ROOM HEAT UP HIGH AND THE THERMOMETER SHOWED A LOW GRADE TEMP. PT IN BED, CALL LIGHT IN REACH NO S&S OF DISTRESS NOTED AT THIS TIME.
[2024-04-29 20:46] VITALS: BP 148/70
[2024-04-30] VITALS (8 sets, daily range): BP systolic 143–164; BP diastolic 69–88
[2024-04-30 05:09] LABS: BASOPHILS ABSOLUTE AUTO 0.03 K/mm3 (0.00-0.23); BASOPHILS PERCENT AUTO 0 % (0-2); EOSINOPHILS ABSOLUTE AUTO 0.27 K/mm3 (0.00-0.68); EOSINOPHILS PERCENT AUTO 4 % (0-6); Hematocrit 25.8 % (33.0-51.0); Hemoglobin 7.9 g/dL (11.5-16.0); IMMATURE GRAN ABSOLUTE AUTO 0.09 K/mm3 (0.00-0.10); IMMATURE GRAN PERCENT AUTO 1 % (0-1); LYMPHOCYTES PERCENT AUTO 18 % (21-46); MONOCYTES ABSOLUTE AUTO 0.61 K/mm3 (0.16-1.47); MONOCYTES PERCENT AUTO 8 % (4-13); Mean Corpuscular HGB 24.2 pg (26.0-34.0); Mean Corpuscular HGB Conc 30.6 g/dL (31.5-36.5); Mean Corpuscular Volume 79 fL (80-100); Mean Platelet Volume 8.2 fL (9.1-12.4); NEUTROPHILS ABSOLUTE AUTO 4.93 K/mm3 (1.96-9.15); NEUTROPHILS PERCENT AUTO 68 % (41-73); Platelet Count 337 K/mm3 (150-400); RDW Coefficient Variation 18.6 % (11.7-14.2); RDW Standard Deviation 53.4 fL (35.1-46.3); Red Blood Cell Count 3.26 M/mm3 (3.80-5.20); White Blood Cell Count 7.23 K/mm3 (4.00-11.30)
--- NOTE | 2024-04-30 06:47 | NUR ---
SHIFT SUMMARY: Pt is admitted for diverticulitis and is a full code. Is alert and able to make needs known. ADLs have been IND to SBA depending on activity. Denies pain or discomfort when asked. Iv to left forearm is running LR at 125. NPO started at midnight pending procedure. Refused CBG checks.
[2024-04-30 07:02] LABS: Albumin, Blood 1.9 g/dL (3.4-5.0); Albumin/Globulin Ratio 0.5 (0.8-1.8); Bilirubin, Total 0.3 mg/dL (0.1-1.0); Bun/Creatinine Ratio 11.7 (12.0-20.0); Calcium, Blood 8.3 mg/dL (8.5-10.1); Creatinine, Blood 0.68 mg/dL (0.40-1.00); Globulin, Blood 4.1 g/dL (2.2-4.0); Potassium, Blood 3.3 mmol/L (3.5-5.5)
[2024-04-30] MEDS ORDERED: Losartan Potassium 25 MG Tab PO SCH (09:00)
[2024-04-30] MEDS ORDERED: Estradiol 1 MG Tab PO SCH (09:00)
[2024-04-30] MEDS ORDERED: Gabapentin 300 MG Cap PO SCH ×2 (09:00→21:00)
[2024-04-30] MEDS ORDERED: Piperacillin/Tazobactam Sod 3.375 GM in NS 100 ML IV SCH (12:00)
--- NOTE | 2024-04-30 15:17 | NUR ---
CALLED DR ESTEVEZ- PT RETURNED FROM CT WITH NO FLUID BEING ASPIRATED IT WOULD NOT DRAW, SHE NOW HAS A CATHETER IN PLACE THAT IS TO BE MANAGED BY SURGICAL SERVICES. CALLED TO NOTIFY DR ESTEVEZ AND ASK IF IT IS STILL OK TO GIVE THE PT A CLEAR LIQUID DIET. ORDER RECIEVED FOR CLEAR LIQUID DIET.
[2024-04-30] MEDS ORDERED: Acetaminophen 325 MG TABLET PO PRN (18:10)
--- NOTE | 2024-04-30 19:36 | NUR ---
SHIFT SUMMARY- PT WENT DOWN TO IMAGING THIS EVENING TO HAVE HER ABD DRAINED PLANNED, HOWEVER THEY WERE UNABLE TO DRAW VERY MUCH OUT OF THE SITE. A DRAIN WAS PLACED THAT WILL BE MANAGED BY [facility]. CALLED DR VAZQUEZ ON PT RETURN TO THE ROOM, HE IS AWARE OF THE CHANGE IN THE PLAN TO NOT PLACE A DRAIN. CALLED DR ESTEVEZ ([facility]) SINCE THERE WAS A CHANGE IN THE ORIGIONAL PLAN, TO CONFIRM PT CAN BE PLACED ON CLEAR LIQUIDS. RECIEVED AN ORDER FOR CLEAR LIQUID DIET. CALLED DR VAZQUEZ AGAIN THIS EVENING THE PT WAS HAVING ABD DISCOMFORT AND SHE WANTS SOME TYLENOL, BUT HAS NO ORDER, RECIEVED AN ORDER AND MEDICATED THE PT (SEE EMAR FOR DETAILS) WITH GOOD EFFECT (PER PT REPORT). PT IS SITTING IP IN BED, CALL LIGHT IN REACH NO S&S OF DSITRESS NOTED AT THIS TIME.
[2024-05-01 03:07] VITALS: BP 176/86
--- NOTE | 2024-05-01 06:36 | NUR ---
SHIFT SUMMARY: Pt is admitted for diverticulitis and is a full code. Is alert and able to make needs known. ADLs have been IND to SBA depending on activity. Denies pain or discomfort when asked. Iv to left forearm is running LR at 125. Refused CBG checks. Drain to ABD minimal output.
[2024-05-01 08:03] LABS: BASOPHILS ABSOLUTE AUTO 0.04 K/mm3 (0.00-0.23); BASOPHILS PERCENT AUTO 1 % (0-2); EOSINOPHILS PERCENT AUTO 4 % (0-6); Hematocrit 29.6 % (33.0-51.0); Hemoglobin 8.9 g/dL (11.5-16.0); IMMATURE GRAN PERCENT AUTO 1 % (0-1); LYMPHOCYTES PERCENT AUTO 20 % (21-46); MONOCYTES ABSOLUTE AUTO 0.57 K/mm3 (0.16-1.47); MONOCYTES PERCENT AUTO 8 % (4-13); Mean Corpuscular HGB 24.1 pg (26.0-34.0); Mean Corpuscular HGB Conc 30.1 g/dL (31.5-36.5); Mean Corpuscular Volume 80 fL (80-100); Mean Platelet Volume 8.3 fL (9.1-12.4); NEUTROPHILS ABSOLUTE AUTO 4.76 K/mm3 (1.96-9.15); NEUTROPHILS PERCENT AUTO 66 % (41-73); Platelet Count 358 K/mm3 (150-400); RDW Coefficient Variation 19.4 % (11.7-14.2); RDW Standard Deviation 54.4 fL (35.1-46.3); White Blood Cell Count 7.17 K/mm3 (4.00-11.30)
[2024-05-01 08:24] VITALS: BP 169/80
[2024-05-01 08:25] LABS: Albumin, Blood 2.1 g/dL (3.4-5.0); Albumin/Globulin Ratio 0.5 (0.8-1.8); Bilirubin, Total 0.4 mg/dL (0.1-1.0); Bun/Creatinine Ratio 7.3 (12.0-20.0); Calcium, Blood 8.3 mg/dL (8.5-10.1); Creatinine, Blood 0.69 mg/dL (0.40-1.00); Globulin, Blood 4.4 g/dL (2.2-4.0); Total Protein, Blood 6.5 g/dL (6.4-8.2)
[2024-05-01] MEDS ORDERED: Potassium Chloride 20 MEQ/15 ML UDC PO ONE (11:55)
[2024-05-01] MEDS ORDERED: MetFORMIN HCl 500 mg PO SCH (18:00)
--- NOTE | 2024-05-01 18:34 | NUR ---
SHIFT SUMMARY PATIENT A/OX4, ABLE TO MAKE NEEDS KNOWN. TALKATIVE WITH STAFF. Q6 BLOOD CBG AND INSULIN ORDERS DISCONTINUED TODAY AND PATIENT STARTED ON HOME METFORMIN ORDER. INCREASED TO FULL LIQUID DIET, TOLERATING WELL. DENIES NAUSEA OR ABDOMINAL PAIN. GURPREET DRAIN TO LEFT ABDOMEN DRAINING MINIMAL AMMOUNT OF SEROSANGUINOUS FLUID. FLUIDS RUNNING PER JUN, POWERGLIDE PLACED TO LEFT UPPER ARM BY CHARGE NURSE. PLAN TO DISCHARGE POSSIBLY SATURDAY AND HAVE SURGERY OUTPATIENT PER DR. HAYDEN. NO OTHER CONCERNS AT THIS TIME.
[2024-05-01 19:16] VITALS: BP 163/84
[2024-05-02 02:31] VITALS: BP 177/78
[2024-05-02 02:33] VITALS: BP 161/78
--- NOTE | 2024-05-02 05:53 | NUR ---
SHIFT SUMMARY PT ALERT AND ORIENTED TIMES 4. PT WAS RECEPTIVE TO CARE, TOOK HS MEDICATION AND IS APPROPRIATE WITH CALL LIGHT. PT ABLE TO MAKE NEEDS KNOWN. PT ABLE TO AMBULATE TO AND FROM TOILET INDEPENDENTLY. GURPREET DRAIN DRAINING WITH MIMINAL AMOUNT. PT RECORDED THREE BM S THIS SHIFT THAT WERE SOFT FORMED MEDIUM SIZE. BED IN LOW POSITION, CALL LIGHT WITHIN REACH, RAILS TIMES 2.
[2024-05-02] MEDS ORDERED: Potassium Chloride 20 MEQ/15 ML UDC PO ONE (07:55)
[2024-05-02 07:58] LABS: BASOPHILS ABSOLUTE AUTO 0.05 K/mm3 (0.00-0.23); BASOPHILS PERCENT AUTO 1 % (0-2); EOSINOPHILS ABSOLUTE AUTO 0.36 K/mm3 (0.00-0.68); EOSINOPHILS PERCENT AUTO 5 % (0-6); Hematocrit 27.7 % (33.0-51.0); Hemoglobin 8.3 g/dL (11.5-16.0); IMMATURE GRAN ABSOLUTE AUTO 0.07 K/mm3 (0.00-0.10); IMMATURE GRAN PERCENT AUTO 1 % (0-1); LYMPHOCYTES ABSOLUTE AUTO 1.57 K/mm3 (0.84-5.20); LYMPHOCYTES PERCENT AUTO 24 % (21-46); MONOCYTES ABSOLUTE AUTO 0.61 K/mm3 (0.16-1.47); MONOCYTES PERCENT AUTO 9 % (4-13); Mean Corpuscular Volume 80 fL (80-100); Mean Platelet Volume 8.3 fL (9.1-12.4); NEUTROPHILS PERCENT AUTO 60 % (41-73); Platelet Count 359 K/mm3 (150-400); RDW Coefficient Variation 19.6 % (11.7-14.2); RDW Standard Deviation 54.7 fL (35.1-46.3); Red Blood Cell Count 3.46 M/mm3 (3.80-5.20); White Blood Cell Count 6.66 K/mm3 (4.00-11.30)
[2024-05-02 08:09] VITALS: BP 144/76
[2024-05-02 08:19] LABS: Albumin, Blood 1.9 g/dL (3.4-5.0); Albumin/Globulin Ratio 0.5 (0.8-1.8); Bilirubin, Total 0.4 mg/dL (0.1-1.0); Calcium, Blood 8.1 mg/dL (8.5-10.1); Creatinine, Blood 0.67 mg/dL (0.40-1.00); Globulin, Blood 4.1 g/dL (2.2-4.0); Potassium, Blood 3.1 mmol/L (3.5-5.5)
[2024-05-02] MEDS ORDERED: HYDROCHLOROTHIAZIDE 6.25 MG PO SCH (09:00)
[2024-05-02] MEDS ORDERED: BISOPROLOL 10 MG PO SCH (09:00)
[2024-05-02] MEDS ORDERED: Magnesium Sulf 2 GM/Water 50ML 50 ML IV ONE (11:30)
[2024-05-02 15:36] VITALS: BP 151/78
--- NOTE | 2024-05-02 17:48 | NUR ---
SHIFT SUMMARY PATIENT A/OX4, ABLE TO MAKE NEEDS KNOWN. PLEASANT AND COOPERATIVE WITH STAFF. PATIENT UPGRADED TO REGULAR DIET THIS EVENING FOR DINNER. ANTICIPATING DISCHARGE TOMORROW, PATIENT ANXIOUS TO GET HOME. PATIENT HAD A SHOWER THIS SHIFT. GURPREET DRAIN CONTINUES WITH MINIMAL SEROSANGUINOUS DRAINAGE, NOT EMPTIED THIS SHIFT NO OUTPUT TO RECORD. NO OTHER CONCERNS AT THIS TIME.
[2024-05-02 20:06] VITALS: BP 124/86
[2024-05-02] MEDS ORDERED: Lactobacil 2-S.Thermo-Bifido 1 1 Cap PO SCH (21:00)
[2024-05-03 05:05] VITALS: BP 168/80
--- NOTE | 2024-05-03 05:26 | NUR ---
SHIFT SUMMARY PT ALERT AND ORIENTED TIMES 4. PT WAS RECEPTIVE TO CARE, TOOK HS MEDICATION. PT APPROPRIATE WITH CALL LIGHT AND ABLE TO MAKE NEEDS KNOWN. PT ABLE TO AMBULATE TO AND FROM TOILET INDEPENDENTLY. POWERGLIDE FLUSHES. GURPREET DRAIN DRAINING WITH MIMINAL AMOUNT. BED IN LOW POSITION, CALL LIGHT WITHIN REACH, RAILS TIMES 2.
[2024-05-03 07:30] VITALS: BP 151/73
[2024-05-03] MEDS ORDERED: Magnesium Oxide 400 MG Tab PO SCH (08:00)
[2024-05-03] MEDS ORDERED: Potassium Chloride 10 Meq Tablet SA PO SCH (08:00)
[2024-05-03 08:43] LABS: BASOPHILS ABSOLUTE AUTO 0.06 K/mm3 (0.00-0.23); BASOPHILS PERCENT AUTO 1 % (0-2); EOSINOPHILS PERCENT AUTO 6 % (0-6); Hematocrit 29.6 % (33.0-51.0); Hemoglobin 8.9 g/dL (11.5-16.0); IMMATURE GRAN ABSOLUTE AUTO 0.07 K/mm3 (0.00-0.10); IMMATURE GRAN PERCENT AUTO 1 % (0-1); LYMPHOCYTES ABSOLUTE AUTO 1.95 K/mm3 (0.84-5.20); LYMPHOCYTES PERCENT AUTO 28 % (21-46); MONOCYTES ABSOLUTE AUTO 0.48 K/mm3 (0.16-1.47); MONOCYTES PERCENT AUTO 7 % (4-13); Mean Corpuscular HGB 24.1 pg (26.0-34.0); Mean Corpuscular HGB Conc 30.1 g/dL (31.5-36.5); Mean Corpuscular Volume 80 fL (80-100); Mean Platelet Volume 8.2 fL (9.1-12.4); NEUTROPHILS PERCENT AUTO 57 % (41-73); Platelet Count 412 K/mm3 (150-400); RDW Standard Deviation 56.1 fL (35.1-46.3); White Blood Cell Count 6.86 K/mm3 (4.00-11.30)
[2024-05-03 09:04] LABS: Albumin, Blood 2.1 g/dL (3.4-5.0); Albumin/Globulin Ratio 0.5 (0.8-1.8); Bilirubin, Total 0.4 mg/dL (0.1-1.0); Bun/Creatinine Ratio 6.7 (12.0-20.0); Calcium, Blood 8.1 mg/dL (8.5-10.1); Creatinine, Blood 0.74 mg/dL (0.40-1.00); Globulin, Blood 4.4 g/dL (2.2-4.0); Potassium, Blood 3.6 mmol/L (3.5-5.5); Total Protein, Blood 6.5 g/dL (6.4-8.2)
[2024-05-03] MEDS ORDERED: MAGNESIUM OXID500 MG PO (14:12)
[2024-05-03] MEDS ORDERED: POTA10T PO (14:13)
[2024-05-03] MEDS ORDERED: CIPR500 PO (14:13)
[2024-05-03] MEDS ORDERED: METR500 PO (14:14)
--- NOTE | 2024-05-03 15:59 | NUR ---
DISCHARGE NOTE PATIENT A/OX4, PLEASANT AND COOPERATIVE. INDEPENDENT IN ROOM. PATIENT EDUCATED REGAURDING DISCHARGE INSTRUCTIONS INCLUDING GURPREET DRAIN, NEW MEDICATIONS, AND FOLLOW UP APPOINTMENTS. AGREEABLE TO PLAN. POWERGLIDE TO LEFT FOREARM REMOVED PRIOR TO DISCHARGE. PATIENT LEFT FACILITY VIA WHEELCHAIR BY [facility] STAFF AND TRANSPORTED BY SON. PRESCRIPTIONS FAXED TO [facility] PER PATIENT REQUEST. NO OTHER CONCERNS.
== END 2024-05-03 14:51 | disposition home or self-care (01) | DRG 391 ==
LOC: ER 11:58 → ERHOLD 18:44 → MEDS 18:44
PROVIDERS: Family Medicine; Nurse Practitioner Acute Care; Student in an Organized Health Care Education/Training Program; ADMIT Internal Medicine
DX: K57.20 Diverticulitis of large intestine with perforation and abscess without bleeding (principal); K65.1 Peritoneal abscess; N17.9 Acute kidney failure, unspecified; N32.1 Vesicointestinal fistula; E87.1 Hypo-osmolality and hyponatremia; B18.2 Chronic viral hepatitis C; K74.60 Unspecified cirrhosis of liver; N18.30 Chronic kidney disease, stage 3 unspecified; E11.22 Type 2 diabetes mellitus with diabetic chronic kidney disease; I12.9 Hypertensive chronic kidney disease with stage 1 through stage 4 chronic kidney disease, or unspecified chronic kidney disease; E87.6 Hypokalemia; E66.9 Obesity, unspecified; I25.10 Atherosclerotic heart disease of native coronary artery without angina pectoris; E83.42 Hypomagnesemia; D50.9 Iron deficiency anemia, unspecified; G89.4 Chronic pain syndrome; M48.062 Spinal stenosis, lumbar region with neurogenic claudication; F43.12 Post-traumatic stress disorder, chronic; D63.1 Anemia in chronic kidney disease; Z90.710 Acquired absence of both cervix and uterus; Z90.722 Acquired absence of ovaries, bilateral; Z90.79 Acquired absence of other genital organ(s); Z88.8 Allergy status to other drugs, medicaments and biological substances; Z79.899 Other long term (current) drug therapy; Z79.84 Long term (current) use of oral hypoglycemic drugs; Z68.28 Body mass index [BMI] 28.0-28.9, adult
CPT/HCPCS: 36415; 49405; 74177; 80053; 81001; 82947; 83735; 85025; 85610; 87077; 87086; 87186; 96361; 96374-59; 99285-25; A9270; C1751; J0696; J2543; J3475; J3480; J7030; J7050; J7120; Q9967

== ENCOUNTER 2024-06-28 15:12 | Emergency (ER) | payer OTHER ==
[~2024-06-28] VITALS: Ht 162.6 cm; Wt 63.5 kg
[~2024-06-28 15:12] MED LIST changes: +CIPR500 PO; +GABA300 PO; +MAGNESIUM OXID500 MG PO; +MECL25 PO; +METR500 PO; +POTA10T PO
[2024-06-28 15:53] LABS: Hematocrit 33.8 % (33.0-51.0); Hemoglobin 10.9 g/dL (11.5-16.0); Mean Corpuscular HGB 24.9 pg (26.0-34.0); Mean Corpuscular HGB Conc 32.2 g/dL (31.5-36.5); Mean Corpuscular Volume 77 fL (80-100); Mean Platelet Volume 8.2 fL (9.1-12.4); Platelet Count 513 K/mm3 (150-400); RDW Coefficient Variation 20.5 % (11.7-14.2); RDW Standard Deviation 57.5 fL (35.1-46.3); Red Blood Cell Count 4.38 M/mm3 (3.80-5.20); White Blood Cell Count 42.62 K/mm3 (4.00-11.30)
[2024-06-28 16:12] LABS: Albumin, Blood 1.8 g/dL (3.4-5.0); Albumin/Globulin Ratio 0.3 (0.8-1.8); Bilirubin, Total 0.7 mg/dL (0.1-1.0); Calcium, Blood 8.4 mg/dL (8.5-10.1); Creatinine, Blood 3.03 mg/dL (0.40-1.00); Globulin, Blood 5.2 g/dL (2.2-4.0)
[2024-06-28 16:14] LABS: BAND PERCENT MAN 9 % (0-8); BASOPHILS PERCENT MAN 0 % (0-2); EOSINOPHILS PERCENT MAN 0 % (0-6); LYMPHOCYTES ABSOLUTE MAN 0.42 K/mm3 (0.84-5.20); LYMPHOCYTES PERCENT MAN 1 % (21-46); MONOCYTES ABSOLUTE MAN 1.27 K/mm3 (0.16-1.47); MONOCYTES PERCENT MAN 3 % (4-13); NEUTROPHILS ABSOLUTE MAN 40.91 K/mm3 (1.96-9.15); SEG NEUTROPHILS PERCENT MAN 87 % (41-73); TOTAL CELLS COUNTED 100
[2024-06-28] MEDS ORDERED: CALCIUM GLUC IN NACL, ISO-OSM 50 ML IV ONE (16:15)
[2024-06-28] MEDS ORDERED: Cefepime HCl 2,000 MG in NS 50 ML IV ONE (17:30)
[2024-06-28] MEDS ORDERED: NS 1,000 ML IV SCH ×2 (17:35→21:55)
[2024-06-28 18:18] LABS: Chloride (POC) 99 mmol/L (98-108); Creatinine (POC) 3.5 mg/dL (0.6-1.0); Glucose (ISTAT POC) 106 mg/dL (70-99); Hemoglobin (POC) 11.6 g/dL (12.0-16.0); Potassium (POC) 5.8 mmol/L (3.5-5.5); Sodium (POC) 128 mmol/L (135-148); Total CO2 (POC) 17 mmol/L (21-32)
[2024-06-28] MEDS ORDERED: Insulin Regular 100 Unit/ML 1ML Dose IV ONE (18:25)
[2024-06-28] MEDS ORDERED: Dextrose 50% 50 ML Vial IV ONE (18:25)
[2024-06-28] MEDS ORDERED: Dextrose 50% 50 ML Syringe IV ONE (18:25)
[2024-06-28 18:33] LABS: Hematocrit 31.4 % (33.0-51.0); Hemoglobin 10.2 g/dL (11.5-16.0); Mean Corpuscular HGB 24.8 pg (26.0-34.0); Mean Corpuscular HGB Conc 32.5 g/dL (31.5-36.5); Mean Corpuscular Volume 76 fL (80-100); Mean Platelet Volume 8.6 fL (9.1-12.4); Platelet Count 473 K/mm3 (150-400); RDW Coefficient Variation 20.4 % (11.7-14.2); RDW Standard Deviation 56.2 fL (35.1-46.3); Red Blood Cell Count 4.12 M/mm3 (3.80-5.20); White Blood Cell Count 37.98 K/mm3 (4.00-11.30)
[2024-06-28 18:49] LABS: International Normalized Ratio 1.47; Prothrombin Time Results 15.3 Sec (9.7-11.5)
[2024-06-28 18:52] LABS: Albumin, Blood 1.7 g/dL (3.4-5.0); Albumin/Globulin Ratio 0.4 (0.8-1.8); Bilirubin, Direct 0.3 mg/dL (0.0-0.3); Bilirubin, Indirect 0.2 mg/dL (0.1-0.7); Bilirubin, Total 0.5 mg/dL (0.1-1.0); Bun/Creatinine Ratio 31.7 (12.0-20.0); Calcium, Blood 8.5 mg/dL (8.5-10.1); Globulin, Blood 4.8 g/dL (2.2-4.0); Magnesium, Blood 2.4 mg/dL (1.6-2.4); Total Protein, Blood 6.5 g/dL (6.4-8.2)
[2024-06-28 18:53] LABS: Phosphorus, Blood 7.9 mg/dL (2.5-4.9)
[2024-06-28 18:55] LABS: BAND PERCENT MAN 10 % (0-8); BASOPHILS PERCENT MAN 0 % (0-2); EOSINOPHILS PERCENT MAN 0 % (0-6); TOTAL CELLS COUNTED 100
[2024-06-28 18:57] LABS: LYMPHOCYTES ABSOLUTE MAN 1.51 K/mm3 (0.84-5.20); LYMPHOCYTES PERCENT MAN 4 % (21-46); MONOCYTES ABSOLUTE MAN 2.27 K/mm3 (0.16-1.47); MONOCYTES PERCENT MAN 6 % (4-13); NEUTROPHILS ABSOLUTE MAN 34.18 K/mm3 (1.96-9.15); SEG NEUTROPHILS PERCENT MAN 80 % (41-73)
[2024-06-28] MEDS ORDERED: Vancomycin HCL 1,250 MG in NS 250 ML IV ONE (19:30)
[2024-06-28 20:06] LABS: PCO2 Arterial 29.3 mmHg (35-45); PO2 Arterial 433 mmHg (80-100); pH Blood Arterial 7.36 (7.35-7.45)
[2024-06-28 20:35] LABS: Source, Urine Straight Cath
[2024-06-28 20:49] LABS: Appearance, Urine Hazy (Clear); Blood, Urine 5+ (Neg); Color, Urine Amber (P-Yellow); Glucose Qualitative, Urine 1+ (Neg); Ketones, Urine 1+ (Neg); Leukocyte Esterase, Urine 3+ (Neg); Nitrite, Urine Neg (Neg); Protein, Urine 2+ (Neg); Specific Gravity, Urine 1.015 (1.003-1.022); Urobilinogen, Urine NORM (Normal)
[2024-06-28 21:02] LABS: Bilirubin, Urine 1+ (Neg)
[2024-06-28 21:03] LABS: Bacteria Many /hpf; Mucus Light (0-Heavy); Squamous Epithelial Cells Few /hpf (Few)
[2024-06-28] MEDS ORDERED: FentaNYL Citrate 50 MCG/ML 2 ML Injection IV ONE (22:20)
[2024-06-28 23:39] LABS: CORONAVIRUS COVID-19 AG Negative (NEGATIVE); INFLUENZA A AG Negative (NEGATIVE); INFLUENZA B AG Negative (NEGATIVE)
[2024-06-28] MEDS ORDERED: CefTRIAXone Sodium 1,000 MG in NS 100 ML IV ONE (23:55)
[2024-06-29] MEDS ORDERED: NS 1,000 ML IV SCH (01:10)
[2024-06-29] MEDS ORDERED: MetroNIDAZOLE 500MG/NS 100 ml 100 ML IV ONE (01:10)
[2024-06-29 02:15] VITALS: BP 103/55
[2024-06-29] MEDS ORDERED: FentaNYL Citrate 50 MCG/ML 2 ML Injection IV ONE (02:20)
== END 2024-06-29 02:25 | disposition short-term general hospital (02) ==
LOC: ER 15:12
PROVIDERS: Student in an Organized Health Care Education/Training Program
DX: K56.699 Other intestinal obstruction unspecified as to partial versus complete obstruction (principal); N17.9 Acute kidney failure, unspecified; I10 Essential (primary) hypertension; Z88.3 Allergy status to other anti-infective agents; Z88.9 Allergy status to unspecified drugs, medicaments and biological substances; Z79.84 Long term (current) use of oral hypoglycemic drugs; Z79.890 Hormone replacement therapy; Z79.899 Other long term (current) drug therapy; Z79.891 Long term (current) use of opiate analgesic
CPT/HCPCS: 36415; 36600; 51702; 70450; 71045; 74176; 80047; 80053; 81001; 82248; 82550; 82803; 83605; 83735; 83880; 84100; 84484; 85014; 85025; 85610; 85730; 87040; 87077; 87086; 87186; 87428-QW; 93005; 93010; 96365; 96366; 96367; 96375; 96376; 99285-25; J0612; J0692; J0696; J1815; J3010; J3370; J7030; J7050; J7799